=== PATIENT | female | born 1990 | race Asian ===

== ENCOUNTER 2018-04-15 15:09 | Emergency (ER) | payer SELFPAY ==
[~2018-04-15] VITALS: Ht 165.1 cm; Wt 63.5 kg
[~2018-04-15 15:09] MED LIST: AUGMENTIN 875-1 EAC1 ORAL; NKM
--- NOTE | 2018-04-15 15:24 | Emergency Room Report ---
History of Present Illness General Chief Complaint: Wound Recheck/Suture Removal Source: Patient Present Illness HPI 27-year-old female presents to the emergency department for suture removal from lip laceration that was previously closed one week ago. Patient denies pain at this time. Denies bleeding, discharge or increase in swelling or tenderness to the wound. denies fevers or chills. Allergies: Coded Allergies: No Known Allergies (Unverified , 04/08/18) Patient History Past Medical History: see triage record Past Surgical History: none Pertinent Family History: none Last Menstrual Period: 03/25 Now: No : 0 Para: 0 Immunizations: UTD Reviewed Nursing Documentation: PMH: Agreed; PSxH: Agreed Nursing Documentation-PMH Past Medical History: No Stated History Review of Systems All Other Systems: negative except mentioned in HPI Physical Exam Vital Signs Date Time Temp Pulse Resp B/P (MAP) Pulse Ox O2 Delivery O2 Flow Rate FiO2 04/15/18 15:19 98.0 84 15 111/83 96 Room Air 98.1 Sp02 EP Interpretation: reviewed, normal General Appearance: no apparent distress, alert, GCS 15, non-toxic Head: normocephalic, other - lip laceration healing, [address] ENT: hearing grossly normal, normal voice Neck: full range of motion Respiratory: lungs clear, normal breath sounds, speaking full sentences Cardiovascular #1: regular rate, rhythm Musculoskeletal: gait/station normal, normal range of motion Neurologic: alert, oriented x3, responsive, motor strength/tone normal, sensory intact, normal gait, speech normal, grossly normal Psychiatric: judgement/insight normal Skin: normal color, no rash, warm/dry, well hydrated, wd healing/no infection noted - right sided upper lip laceration- [address] Medical Decision Making PA Attestation Dr. Bae is my supervising Physician whom patient management has been discussed with. Diagnostic Impression: Primary Impression: Encounter for removal of sutures ER Course 27-year-old female presents to the emergency department for suture removal from lip laceration that was previously closed one week ago. Patient denies pain at this time. Denies bleeding, discharge or increase in swelling or tenderness to the wound. denies fevers or chills. Ddx considered but are not limited to laceration, tendon injury, cellulitis, dehiscence. Vital signs: are WNL, pt. is afebrile H&PE are most consistent with: healed laceration of the right upper lip. ORDERS: none required at this time, the diagnosis is clinical ED INTERVENTIONS: - 7 Sutures removed. DISCHARGE: At this time pt. is stable for d/c to home. Will provide printed patient care instructions, and any necessary prescriptions. Care plan and follow up instructions have been discussed with the patient prior to discharge. Last Vital Signs Date Time Temp Pulse Resp B/P (MAP) Pulse Ox O2 Delivery O2 Flow Rate FiO2 04/15/18 15:19 98.0 84 15 111/83 96 Room Air 98.1 Disposition: HOME, SELF-CARE Condition: Stable Scripts Benzocaine (ORAL ANESTHETIC) 7 Gm Gel..gram. 1 APPLIC MM BID for pain for 3 Days, #7 GM Prov: Leidy Desouza 04/15/18 Allantoin/Onion/Peg/Water (MEDERMA GEL) 20 Gm Gel..gram. 20 GM TP TID, #20 GM 5 Refills Prov: Leidy Desouza 04/15/18 Patient Instructions: Suture Removal, Care After Additional Instructions: Take medications as directed. Follow up with a Primary Care Provider in 3-5 days, even if your symptoms have resolved. --Please review list of primary care clinics, if you do not already have a primary care provider Return sooner to ED if new symptoms occur, or current symptoms become worse. - Please note that this Emergency Department Report was dictated using [employer] technology software, occasionally this can lead to erroneous entry secondary to interpretation by the dictation equipment. Leidy Desouza Apr 15, 2018 15:24
[2018-04-15 15:27] VITALS: BP 111/83
[2018-04-15] MEDS ORDERED: MEDERMA GEL20 GM TP (15:40)
[2018-04-15 15:46] VITALS: BP 111/83
[2018-04-15] MEDS ORDERED: ORAL ANESTHETIC7 GM MM (15:47)
== END 2018-04-15 15:47 | disposition home or self-care (01) ==
LOC: EMR 15:35
DX: Z48.02 Encounter for removal of sutures (principal); S01.511D Laceration without foreign body of lip, subsequent encounter; X58.XXXD Exposure to other specified factors, subsequent encounter
CPT/HCPCS: 99282